=== PATIENT | male | born 1985 | race Asian ===

== ENCOUNTER 2021-11-09 19:34 | Emergency (ER) | payer OTHER ==
[~2021-11-09] VITALS: Ht 165.1 cm; Wt 79.5 kg
[2021-11-09] MEDS ORDERED: COLC0.6T73 PO (19:42)
[2021-11-09] MEDS ORDERED: ALLO-97 PO (19:43)
[2021-11-09] MEDS ORDERED: ONDANSETRON HCL 4 MG/2 ML VIAL IVP ONE (20:00)
[2021-11-09] MEDS ORDERED: SODIUM CHLORIDE 0.9% 1,000 ML IV ONE ×2 (20:00→23:45)
[2021-11-09] MEDS ORDERED: MORPHINE SULFATE 2 MG/ML SYRINGE IVP ONE (20:00)
[2021-11-09] MEDS ORDERED: KETOROLAC TROMETHAMINE 30 MG/ML VIAL IVP ONE ×2 (20:00→23:45)
[2021-11-09 20:17] LABS: BASOPHILS % (AUTO) 0.3 % (0.0-2.0); EOSINOPHILS % (AUTO) 1.1 % (1.0-6.0); HEMATOCRIT 43.8 % (41-53); HEMOGLOBIN 14.5 g/dL (13.5-17.5); LYMPHOCYTES # (AUTO) 4.1 K/uL (1.0-4.8); MEAN CORPUSCULAR VOLUME 88 fL (80-100); MONOCYTES # (AUTO) 0.6 K/uL (0.1-1.0); MONOCYTES % (AUTO) 8.9 % (2.0-9.0); NEUTROPHILS # (AUTO) 2.2 K/uL (1.8-7.7); NEUTROPHILS % (AUTO) 31.7 % (40.0-70.0); PLATELET COUNT (AUTO) 259 K/uL (150-450); RED BLOOD CELL COUNT(AUTO) 4.99 MIL/uL (4.50-5.90); RED CELL DISTRIBUTION WIDTH 13.9 % (11.5-14.5)
[2021-11-09 20:30] LABS: ANION GAP 8 mmol/L (8-16); CALCIUM, TOTAL 9.8 mg/dL (8.8-10.5); CARBON DIOXIDE 27 mmol/L (22-29); CHLORIDE 103 mmol/L (98-107); CREATININE 1.29 mg/dL (0.60-1.30); GLOMERULAR FILTR. RATE CALC > 60 mL/min (>60); GLUCOSE,RANDOM 122 mg/dL (70-110); POTASSIUM 3.4 mmol/L (3.5-5.1); SODIUM SERUM 138 mmol/L (136-145); UREA NITROGEN, BLOOD 12 mg/dL (7-18)
[2021-11-09 20:36] LABS: ALANINE AMINOTRANSFERASE 51 U/L (12-78); ALBUMIN 4.3 g/dL (3.4-5.0); ALKALINE PHOSPHATASE 81 U/L (46-116); ASPARTATE AMINOTRANSFERASE 28 U/L (15-37); BILIRUBIN,TOTAL 0.6 mg/dL (0.1-1.0); LIPASE 146 U/L (73-393); TOTAL PROTEIN, SERUM 7.9 g/dL (6.4-8.2)
[2021-11-09 20:38] LABS: LACTIC ACID 1.7 mmol/L (0.4-2.0)
[2021-11-09] MEDS ORDERED: SODIUM CHLORIDE 0.9% 100 ML ONE (20:48)
[2021-11-09] MEDS ORDERED: IOHEXOL 350 MG/ML 100 ML VIAL ONE (20:48)
[2021-11-09 22:30] LABS: APPEARANCE,URINE HAZY (CLEAR); BILIRUBIN,URINE NEGATIVE (NEGATIVE); GLUCOSE, URINE (UA) NEGATIVE (NEGATIVE); KETONES,URINE NEGATIVE (NEGATIVE); LEUKOCYTE ESTERASE ,URINE NEGATIVE (NEGATIVE); NITRATE,URINE NEGATIVE (NEGATIVE); OCCULT BLOOD,URINE LARGE (NEGATIVE); PROTEIN,URINE 30-70 mg/dL (NEGATIVE); SPECIFIC GRAVITIY, URINE 1.021 (1.003-1.030); UROBILINOGEN,URINE <=1.0 mg/dL (<=1.0)
[2021-11-09] MEDS ORDERED: HYDROmorphone 2 MG/ML VIAL IVP ONE (22:45)
[2021-11-09 22:55] LABS: RBC,URINE >100 /HPF (0-2)
[2021-11-09 22:56] LABS: BACTERIA,URINE Many /HPF (None Seen)
[2021-11-10] MEDS ORDERED: TAMS-1 PO (01:49)
[2021-11-10 01:57] VITALS: BP 131/86
[2021-11-10] MEDS ORDERED: ONDANSETRON HCL 4 MG/2 ML VIAL IVP ONE (02:00)
== END 2021-11-10 02:16 | disposition home or self-care (01) ==
LOC: EMS 19:37
DX: N20.0 Calculus of kidney (principal); Z79.899 Other long term (current) drug therapy
CPT/HCPCS: 99285; 74177; 96374; 96375; 96361; 80053; 81001; 83605; 83690; 85025; 36415; 87086; 96376 ×2; J1170; J1885; J2270; J2405 ×2; Q9967; J7030; J7050